=== PATIENT | female | born 1940 | race African-American/Black ===

== ENCOUNTER 2021-12-12 00:58 | Inpatient (IN) | payer MEDICARE, OTHER ==
[~2021-12-12] VITALS: Ht 160 cm; Wt 65.8 kg
[~2021-12-12 00:58] MED LIST: AZEL23SP BOTHNSTRLS; CHLO25TA2 PO; CHLO25TA27 PO; CHOL200010 PO; CLON0.5T54 PO; ESTR0.9T2 PO; FENO45CA PO; FOLI-43 PO; FURO40TA5 PO; GLIP5TAB12 PO; LEVO25TA7 PO; LEVO50TA8 PO; METF-414 PO; METF-415 PO; PANT20TA17 PO; PROT40 PO; [UNRECOGNIZED DRUG - CODE] IV
[2021-12-12] MEDS ORDERED: SODIUM CHLORIDE 0.9% 1000ML BAG (SEPSIS BOLUS) IV ONE (01:30)
[2021-12-12 01:55] LABS: BASOPHILS % 0.4 % (0.0-2.0); EOSINOPHILS % 0.8 % (0.0-5.0); HEMOGLOBIN. 12.4 g/dL (12.0-16.0); LYMPHOCYTES % 9.3 % (20.0-50.0); MEAN CORPUSCULAR HEMOGLOBIN 29.7 pg (28.0-32.0); MEAN CORPUSCULAR VOLUME 89.1 fL (81.0-99.0); MEAN PLATELET VOLUME 8.4 fl (7.4-10.4); NEUTROPHILS % 86.5 % (40.0-76.0); PLATELET 253 x1000/uL (130-400); RED BLOOD CELL COUNT 4.16 mill/uL (4.2-5.4); RED CELL DISTRIBUTION WIDTH 13.3 % (11.6-14.6)
[2021-12-12 02:32] LABS: CHLORIDE 108 mEq/L (98-107)
[2021-12-12 02:56] LABS: CLARITY URINE CLOUDY (CLEAR); COLOR URINE DARK YELLOW (YELLOW); KETONES URINE TRACE (NEGATIVE); LEUKOCYTE ESTERASE URINE 2+ (NEGATIVE); NITRITE URINE NEGATIVE (NEGATIVE); OCCULT BLOOD URINE NEGATIVE (NEGATIVE); PROTEIN URINE 2+ (NEGATIVE); SPECIFIC GRAVITY URINE 1.015 (1.005-1.030)
[2021-12-12] MEDS ORDERED: MAGNESIUM/ALUMINUM HYDROXIDE/SIMETHICONE 30ML UDC PO PRN (07:45)
[2021-12-12] MEDS ORDERED: ONDANSETRON HCL 4MG/2ML INJ IV PRN (07:45)
[2021-12-12] MEDS ORDERED: DEXTROSE 50% WATER 50ML SYRINGE IV PRN (07:45)
[2021-12-12] MEDS ORDERED: ACETAMINOPHEN 325MG TABLET PO PRN (07:45)
[2021-12-12] MEDS ORDERED: GUAIFENESIN 200MG/10ML SUGAR FREE UDC PO PRN (07:45)
[2021-12-12] MEDS ORDERED: NITROGLYCERIN 0.4MG TABLET SL SL PRN (07:45)
[2021-12-12] MEDS ORDERED: IPRATROPIUM/ALBUTEROL 0.5-3(2.5)MG/3ML NEB NEB PRN (07:45)
[2021-12-12] MEDS ORDERED: ZOLPIDEM TARTRATE 5MG TABLET PO PRN (07:45)
[2021-12-12] MEDS ORDERED: DOCUSATE SODIUM 100MG CAPSULE PO PRN (07:45)
[2021-12-12] MEDS ORDERED: KETOROLAC 15MG/ML VIAL IV PRN (07:45)
[2021-12-12] MEDS ORDERED: PIPERACILLIN/TAZ 3.375G PREMIX 50 ML IV NR (08:00)
[2021-12-12 08:57] LABS: FOLIC ACID (FOLATE) SERUM >20 ng/mL ng/mL (>5.38)
[2021-12-12] MEDS: FAMOTIDINE 20MG TABLET PO SCH (09:00)
[2021-12-12 09:09] LABS: VITAMIN B12 SERUM 557 pg/mL (211-911)
[2021-12-12] MEDS: BLOOD SUGAR DIAGNOSTIC STRIP TEST SCH ×4 (11:38→21:26)
[2021-12-12] MEDS: ENOXAPARIN 30MG/0.3ML SYR SUBCUT SCH (11:45)
[2021-12-12] MEDS: INSULIN LISPRO 100 UNITS/ML SUBCUT SCH ×4 (11:46→21:00)
[2021-12-12] MEDS ORDERED: HALOPERIDOL LACTATE 5MG/ML VIAL IM SCH (14:00)
[2021-12-12] MEDS ORDERED: SODIUM CHLORIDE 0.9% 1,000 ML IV ONE (15:15)
[2021-12-12] MEDS: PIPERACILLIN/TAZOBACTAM 3.375 G in DEXTROSE 5% WATER 50 ML IV SCH (21:55)
[2021-12-12] MEDS: CLONIDINE 0.1MG TABLET PO PRN (21:59)
[2021-12-12 22:51] VITALS: BP 159/58
[2021-12-12] MEDS ORDERED: IMMU20VI IJ (23:56)
[2021-12-12] MEDS ORDERED: ASPI-1497 MT (23:56)
[2021-12-12] MEDS ORDERED: BENA40TA9 MT (23:56)
[2021-12-12] MEDS ORDERED: CRES10 MT (23:56)
[2021-12-12] MEDS ORDERED: CARV25TA47 MT (23:56)
[2021-12-12] MEDS ORDERED: RANO500T3 MT (23:56)
[2021-12-12] MEDS ORDERED: METH1TAB2 MT (23:56)
[2021-12-13 04:00] VITALS: BP 126/58
[2021-12-13] MEDS: LEVOTHYROXINE SODIUM 75MCG TABLET PO SCH (06:36)
[2021-12-13] MEDS: BLOOD SUGAR DIAGNOSTIC STRIP TEST SCH ×4 (06:40→21:59)
[2021-12-13] MEDS: INSULIN LISPRO 100 UNITS/ML SUBCUT SCH ×4 (06:57→21:59)
[2021-12-13 07:11] LABS: HEMATOCRIT. 32.5 % (36.0-48.0); HEMOGLOBIN. 10.8 g/dL (12.0-16.0); MEAN CORPUSCULAR HEMOGLOBIN 29.1 pg (28.0-32.0); MEAN CORPUSCULAR VOLUME 87.4 fL (81.0-99.0); MEAN PLATELET VOLUME 9.2 fl (7.4-10.4); PLATELET 183 x1000/uL (130-400); RED BLOOD CELL COUNT 3.71 mill/uL (4.2-5.4); RED CELL DISTRIBUTION WIDTH 13.3 % (11.6-14.6)
[2021-12-13 07:26] LABS: CHLORIDE 114 mEq/L (98-107)
[2021-12-13 07:32] LABS: PHOSPHORUS 2.5 mg/dL (2.5-4.9)
[2021-12-13 08:00] VITALS: BP 128/48
[2021-12-13] MEDS: ENOXAPARIN 30MG/0.3ML SYR SUBCUT SCH (09:26)
[2021-12-13] MEDS: FAMOTIDINE 20MG TABLET PO SCH (09:26)
[2021-12-13 10:51] LABS: PLATELET ESTIMATE NORMAL
[2021-12-13 10:58] LABS: *AMPHETAMINES SCREEN URINE NEGATIVE (NEGATIVE); *BARBITURATES SCREEN URINE NEGATIVE (NEGATIVE); *BENZODIAZEPINES SCREEN URINE NEGATIVE (NEGATIVE)
[2021-12-13 10:59] LABS: *COCAINE SCREEN URINE NEGATIVE (NEGATIVE); CANNABINOID URINE SCREEN NEGATIVE (NEGATIVE); METHADONE URINE SCREEN NEGATIVE (NEGATIVE); OPIATES URINE SCREEN NEGATIVE (NEGATIVE); PHENCYCLIDINE URINE SCREEN NEGATIVE (NEGATIVE)
[2021-12-13 12:00] VITALS: BP 112/45
[2021-12-13] MEDS: PIPERACILLIN/TAZOBACTAM 3.375 G in DEXTROSE 5% WATER 50 ML IV SCH ×2 (12:39→21:59)
[2021-12-13] MEDS: SODIUM CHLORIDE 0.9% 1,000 ML IV SCH (12:40)
[2021-12-13 16:00] VITALS: BP 126/52
[2021-12-13] MEDS: ACETAMINOPHEN 325MG TABLET PO PRN (16:58)
[2021-12-13 20:00] VITALS: BP 108/35
[2021-12-13] MEDS: CARVEDILOL 6.25 MG TABLET PO SCH (21:59)
[2021-12-14] VITALS: BP 119/34
[2021-12-14] MEDS: SODIUM CHLORIDE 0.9% 1,000 ML IV SCH ×2 (00:39→13:07)
[2021-12-14 04:00] VITALS: BP 157/61
[2021-12-14] MEDS: INSULIN LISPRO 100 UNITS/ML SUBCUT SCH ×4 (06:24→21:00)
[2021-12-14] MEDS: BLOOD SUGAR DIAGNOSTIC STRIP TEST SCH ×4 (06:24→21:08)
[2021-12-14] MEDS: LEVOTHYROXINE SODIUM 75MCG TABLET PO SCH (06:25)
[2021-12-14 08:00] VITALS: BP 161/55
[2021-12-14] MEDS: CARVEDILOL 6.25 MG TABLET PO SCH ×2 (11:09→21:08)
[2021-12-14] MEDS: FAMOTIDINE 20MG TABLET PO SCH (11:09)
[2021-12-14] MEDS: ENOXAPARIN 30MG/0.3ML SYR SUBCUT SCH (11:09)
[2021-12-14] MEDS: PIPERACILLIN/TAZOBACTAM 3.375 G in DEXTROSE 5% WATER 50 ML IV SCH ×2 (11:10→21:08)
[2021-12-14 12:00] VITALS: BP 155/60
[2021-12-14 16:00] VITALS: BP 152/64
[2021-12-14] MEDS ORDERED: MOXI3DRO12 LEFTEYE (19:06)
[2021-12-14] MEDS ORDERED: [UNRECOGNIZED DRUG - OTHER] (19:06)
[2021-12-14 20:00] VITALS: BP 173/64
[2021-12-15] VITALS: BP 145/51
[2021-12-15 04:00] VITALS: BP 152/53
[2021-12-15] MEDS: SODIUM CHLORIDE 0.9% 1,000 ML IV SCH ×2 (05:01→18:06)
[2021-12-15] MEDS: INSULIN LISPRO 100 UNITS/ML SUBCUT SCH ×4 (06:17→20:20)
[2021-12-15] MEDS: LEVOTHYROXINE SODIUM 75MCG TABLET PO SCH (06:17)
[2021-12-15] MEDS: BLOOD SUGAR DIAGNOSTIC STRIP TEST SCH ×4 (06:17→20:20)
[2021-12-15 08:00] VITALS: BP 162/62
[2021-12-15] MEDS: FAMOTIDINE 20MG TABLET PO SCH (11:13)
[2021-12-15] MEDS: CARVEDILOL 6.25 MG TABLET PO SCH ×2 (11:13→20:28)
[2021-12-15] MEDS: PIPERACILLIN/TAZOBACTAM 3.375 G in DEXTROSE 5% WATER 50 ML IV SCH ×2 (11:13→20:20)
[2021-12-15] MEDS: ENOXAPARIN 30MG/0.3ML SYR SUBCUT SCH (11:14)
[2021-12-15 12:00] VITALS: BP 154/60
[2021-12-15 16:00] VITALS: BP 158/65
[2021-12-15] MEDS ORDERED: NON FORMULARY PATIENT HOME MED XX SCH (18:00)
[2021-12-15] MEDS: MOXIFLOXACIN 0.5% LEFTEYE SCH ×2 (18:53→20:57)
[2021-12-15 20:00] VITALS: BP 157/55
[2021-12-16] VITALS: BP 158/63
[2021-12-16] MEDS: MOXIFLOXACIN 0.5% LEFTEYE SCH ×3 (01:01→20:31)
[2021-12-16 04:00] VITALS: BP 101/71
[2021-12-16] MEDS: SODIUM CHLORIDE 0.9% 1,000 ML IV SCH ×2 (05:12→18:30)
[2021-12-16] MEDS: CLONIDINE 0.1MG TABLET PO PRN ×3 (05:14→14:28)
[2021-12-16] MEDS: LEVOTHYROXINE SODIUM 75MCG TABLET PO SCH (06:18)
[2021-12-16] MEDS: BLOOD SUGAR DIAGNOSTIC STRIP TEST SCH ×3 (06:21→21:00)
[2021-12-16] MEDS: INSULIN LISPRO 100 UNITS/ML SUBCUT SCH ×3 (06:21→22:34)
[2021-12-16] MEDS: ACETAMINOPHEN 325MG TABLET PO PRN (06:27)
[2021-12-16] MEDS ORDERED: METHYLPREDNISOLONE SOD SUCC 125 MG/2 ML VIAL IV NR (09:00)
[2021-12-16 09:10] VITALS: BP 165/62
[2021-12-16] MEDS: FAMOTIDINE 20MG TABLET PO SCH (09:49)
[2021-12-16] MEDS: CARVEDILOL 6.25 MG TABLET PO SCH ×2 (09:49→20:33)
[2021-12-16] MEDS: ENOXAPARIN 30MG/0.3ML SYR SUBCUT SCH (09:50)
[2021-12-16] MEDS: PIPERACILLIN/TAZOBACTAM 3.375 G in DEXTROSE 5% WATER 50 ML IV SCH ×2 (09:51→20:33)
[2021-12-16] MEDS: PREDNISOLONE ACETATE 1% OPHTH DROPS 5ML LEFTEYE SCH (09:51)
[2021-12-16 14:25] VITALS: BP 165/70
[2021-12-16 20:00] VITALS: BP 165/67
[2021-12-17] VITALS: BP 156/79
[2021-12-17] MEDS: MOXIFLOXACIN 0.5% LEFTEYE SCH ×3 (01:33→10:29)
[2021-12-17 04:00] VITALS: BP 177/58
[2021-12-17] MEDS: LEVOTHYROXINE SODIUM 75MCG TABLET PO SCH (06:37)
[2021-12-17] MEDS: SODIUM CHLORIDE 0.9% 1,000 ML IV SCH (06:38)
[2021-12-17] MEDS: CLONIDINE 0.1MG TABLET PO PRN (06:38)
[2021-12-17] MEDS: BLOOD SUGAR DIAGNOSTIC STRIP TEST SCH (06:39)
[2021-12-17] MEDS: INSULIN LISPRO 100 UNITS/ML SUBCUT SCH (06:39)
[2021-12-17] MEDS ORDERED: INSULIN LISPRO 100 UNITS/ML SUBCUT SCH (07:40)
[2021-12-17 08:00] VITALS: BP 148/62
[2021-12-17] MEDS: FAMOTIDINE 20MG TABLET PO SCH (08:49)
[2021-12-17] MEDS: CARVEDILOL 6.25 MG TABLET PO SCH (08:50)
[2021-12-17] MEDS: PREDNISOLONE ACETATE 1% OPHTH DROPS 5ML LEFTEYE SCH (08:50)
[2021-12-17] MEDS: ENOXAPARIN 30MG/0.3ML SYR SUBCUT SCH (08:51)
[2021-12-17 10:09] VITALS: BP 148/62
== END 2021-12-17 11:10 | disposition home or self-care (01) | DRG 871 ==
LOC: ER 00:58 → 8WST 04:18 → SUPCPDRO 07:06 → ENRESERV 20:57
PROVIDERS: ADMIT Internal Medicine; ATTEND Internal Medicine
DX: A41.9 Sepsis, unspecified organism (principal); G92.8 Other toxic encephalopathy; N17.0 Acute kidney failure with tubular necrosis; N39.0 Urinary tract infection, site not specified; E44.1 Mild protein-calorie malnutrition; E87.1 Hypo-osmolality and hyponatremia; E03.9 Hypothyroidism, unspecified; E11.9 Type 2 diabetes mellitus without complications; B96.20 Unspecified Escherichia coli [E. coli] as the cause of diseases classified elsewhere; I10 Essential (primary) hypertension; I25.10 Atherosclerotic heart disease of native coronary artery without angina pectoris; N13.9 Obstructive and reflux uropathy, unspecified; K52.9 Noninfective gastroenteritis and colitis, unspecified; Z96.642 Presence of left artificial hip joint; Z79.4 Long term (current) use of insulin; Z88.8 Allergy status to other drugs, medicaments and biological substances; Z79.84 Long term (current) use of oral hypoglycemic drugs; Z79.899 Other long term (current) drug therapy; Z68.25 Body mass index [BMI] 25.0-25.9, adult
CPT/HCPCS: 36415; 71045; 74176; 80053; 80061; 80305; 81003; 82607; 82746; 82962; 83036; 83540; 83550; 83605; 83735; 84100; 84145; 84443; 84484; 85025; 87015; 87045; 87077; 87186; 87427; 87493; 89055; 93005; 93970; 97110; 97162; 97166; 97530; 99291; J1630; J1650; J1815; J2543; J2930; J7030; J7060

== ENCOUNTER 2025-08-27 12:20 | Inpatient (IN) | payer OTHER, MEDICARE ==
[~2025-08-27] VITALS: Ht 160 cm; Wt 65.8 kg
[~2025-08-27 12:20] MED LIST changes: +ASPI-1497 MT; +BENA40TA91 MT; +CARV12.545 PO; +CEFI400C4 PO; -CHLO25TA2 PO; -CHLO25TA27 PO; -CHOL200010 PO; -CLON0.5T54 PO; +CRES10 MT; +DONE5TAB33 PO; -ESTR0.9T2 PO; -FENO45CA PO; -FURO40TA5 PO; -GLIP5TAB12 PO; +IMMU20VI IJ; -LEVO25TA7 PO; -METF-414 PO; -METF-415 PO; +METH1TAB69 PO; +NIFE-33 PO; -PANT20TA17 PO; +PANT40TA51 PO; -PROT40 PO; +RANO500T3 MT; +ROSU10CA; +TRAM50TA3 PO; -[UNRECOGNIZED DRUG - CODE] IV
[2025-08-27 12:22] VITALS: O2SAT 100
[2025-08-27] MEDS ORDERED: ASPIRIN 81MG TABLET PO ONE (13:00)
[2025-08-27 13:18] LABS: BASOPHILS % 0.7 % (0.0-2.0); EOSINOPHILS % 2.0 % (0.0-5.0); HEMATOCRIT. 34.6 % (36.0-48.0); HEMOGLOBIN. 11.2 g/dL (12.0-16.0); LYMPHOCYTES % 15.5 % (20.0-50.0); MEAN PLATELET VOLUME 8.6 fl (7.4-10.4); MONOCYTES % 6.2 % (2.0-8.0); NEUTROPHILS % 75.6 % (40.0-76.0); PLATELET 275 x1000/uL (130-400); RED BLOOD CELL COUNT 4.12 mill/uL (4.2-5.4); RED CELL DISTRIBUTION WIDTH 15.1 % (11.6-14.6)
[2025-08-27] MEDS: CEFTRIAXONE 1GM/50ML 50 ML IV ONE (13:28)
[2025-08-27] MEDS: SODIUM CHLORIDE 0.9% (SEPSIS BOLUS) IV ONE (13:28)
[2025-08-27 13:31] LABS: INR 1.0
[2025-08-27 13:44] LABS: TROPONIN I HIGH SENSITIVITY 9 ng/L (3.0-34); UREA NITROGEN BLOOD 32 mg/dL (9-23)
[2025-08-27 13:45] LABS: PROTEIN TOTAL 7.9 g/dL (6.0-8.3)
[2025-08-27 13:46] LABS: ASPARTATE AMINOTRANSFERASE 18 IU/L (<34)
[2025-08-27 13:47] LABS: BILIRUBIN DIRECT 0.1 mg/dL (<=3.0); BILIRUBIN TOTAL 0.4 mg/dL (0.1-1.0)
[2025-08-27 13:49] LABS: CREATININE 2.1 mg/dL (0.6-1.0)
[2025-08-27 14:30] LABS: CLARITY URINE CLEAR (CLEAR); COLOR URINE YELLOW (YELLOW); GLUCOSE URINE NEGATIVE (NEGATIVE); KETONES URINE NEGATIVE (NEGATIVE); LEUKOCYTE ESTERASE URINE 1+ (NEGATIVE); NITRITE URINE NEGATIVE (NEGATIVE); OCCULT BLOOD URINE TRACE (NEGATIVE); PH URINE 6.5 (4.5-8.0); PROTEIN URINE 1+ (NEGATIVE); SPECIFIC GRAVITY URINE 1.011 (1.005-1.030); UROBILINOGEN URINE 0.2 E.U./dL (0.2-1.0)
[2025-08-27 14:42] LABS: RBC URINE 0-2 /hpf (0-2); SQUAMOUS EPITHELIAL CELL URINE 1+ /lpf (RARE/1+)
[2025-08-27 14:43] LABS: BACTERIA URINE 1+; YEAST URINE NONE SEEN
[2025-08-27] MEDS: AZITHROMYCIN 500MG/250ML 250 ML IV ONE (15:27)
[2025-08-27] MEDS: FUROSEMIDE 40MG/4ML VIAL IVP ONE (16:24)
[2025-08-27] MEDS ORDERED: DEXTROSE 50% WATER 50ML SYRINGE IV PRN (16:30)
[2025-08-27] MEDS ORDERED: SODIUM CHLORIDE 0.45% 1,000 ML IV SCH (16:30)
[2025-08-27] MEDS ORDERED: ONDANSETRON HCL 4MG/2ML INJ IV PRN (16:30)
[2025-08-27] MEDS ORDERED: MAGNESIUM/ALUMINUM HYDROXIDE/SIMETHICONE 30ML UDC PO PRN (16:30)
[2025-08-27] MEDS ORDERED: IPRATROPIUM/ALBUTEROL 0.5-3(2.5)MG/3ML NEB HHN PRN (16:30)
[2025-08-27] MEDS: BLOOD SUGAR DIAGNOSTIC STRIP TEST SCH (17:00)
[2025-08-27] MEDS ORDERED: DONE23TA14 MT (17:32)
[2025-08-27 17:40] VITALS: BP 181/67; PULSE 76; RESP 22; TEMP 36.3068
[2025-08-27] MEDS: ENOXAPARIN 30MG/0.3ML SYR SUBCUT SCH (18:07)
[2025-08-27] MEDS: INSULIN LISPRO 100 UNITS/ML SUBCUT SCH (18:20)
[2025-08-27] MEDS: SODIUM CHLORIDE 0.45% 500 ML IV ONE (18:23)
[2025-08-27 20:00] VITALS: BP 164/65; PULSE 69; RESP 19; TEMP 36.7
[2025-08-27] MEDS: PANTOPRAZOLE 40MG DR TABLET PO SCH (20:19)
[2025-08-27] MEDS: ATORVASTATIN CALCIUM 10MG TABLET PO SCH (20:19)
[2025-08-27] MEDS: FUROSEMIDE 40MG/4ML VIAL IV SCH (20:19)
[2025-08-27] MEDS: CARVEDILOL 12.5MG TABLET PO SCH (20:20)
[2025-08-27] MEDS ORDERED: CHOL200010 PO (21:52)
[2025-08-28] VITALS: BP 131/46; PULSE 65; RESP 17; TEMP 36.8; O2SAT 100
[2025-08-28 00:46] LABS: TROPONIN I HIGH SENSITIVITY 13 ng/L (3.0-34)
[2025-08-28 00:49] LABS: FOLIC ACID (FOLATE) SERUM > 20.00 ng/mL (>5.38)
[2025-08-28 00:50] LABS: VITAMIN B12 SERUM 274 pg/mL (211-911)
[2025-08-28 04:00] VITALS: BP 169/67; PULSE 72; RESP 23; TEMP 36.7; O2SAT 100
[2025-08-28] MEDS: CLONIDINE 0.1MG TABLET PO PRN (04:15)
[2025-08-28] MEDS: TRAMADOL 50MG TABLET PO PRN (05:44)
[2025-08-28] MEDS: LEVOTHYROXINE SODIUM 25MCG TABLET PO SCH (06:23)
[2025-08-28 06:50] LABS: PROTEIN TOTAL 7.6 g/dL (6.0-8.3)
[2025-08-28 06:51] LABS: ASPARTATE AMINOTRANSFERASE 17 IU/L (<34); BILIRUBIN DIRECT 0.2 mg/dL (<=3.0); BILIRUBIN TOTAL 0.4 mg/dL (0.1-1.0)
[2025-08-28 06:52] LABS: CREATININE 1.9 mg/dL (0.6-1.0); TRIGLYCERIDE 92.0 mg/dL (0-150); UREA NITROGEN BLOOD 29.0 mg/dL (9-23)
[2025-08-28 06:53] LABS: LDL CHOLESTEROL 46.0 mg/dL (5-100); TROPONIN I HIGH SENSITIVITY 11 ng/L (3.0-34)
[2025-08-28 06:54] LABS: T4 FREE 1.69 ng/dL (0.89-1.76)
[2025-08-28 07:24] LABS: BASOPHILS % 0.8 % (0.0-2.0); EOSINOPHILS % 2.8 % (0.0-5.0); HEMATOCRIT. 34.0 % (36.0-48.0); HEMOGLOBIN. 10.5 g/dL (12.0-16.0); LYMPHOCYTES % 19.5 % (20.0-50.0); MEAN PLATELET VOLUME 9.3 fl (7.4-10.4); MONOCYTES % 8.3 % (2.0-8.0); NEUTROPHILS % 68.6 % (40.0-76.0); PLATELET 259 x1000/uL (130-400); RED BLOOD CELL COUNT 3.99 mill/uL (4.2-5.4); RED CELL DISTRIBUTION WIDTH 15.2 % (11.6-14.6)
[2025-08-28 08:00] VITALS: BP 119/45; PULSE 55; RESP 55; TEMP 36.7; O2SAT 100
[2025-08-28] MEDS ORDERED: FUROSEMIDE 40MG/4ML VIAL IV SCH (09:00)
[2025-08-28 09:49] LABS: BG BASE EXCESS -4.2 mmol/L (-2.0-3.0); BG CARBOXYHEMOGLOBIN 1.1 % (0.5-1.5); BG DEOXYHEMOGLOBIN 2.7 % (0.0-5.0); BG FLOW(L/min) 4.00 L/min; BG FRACTION INSPIRED OXYGEN 36; BG HCO3 ACT 21.7 mmol/L (21.0-28.0); BG METHEMOGLOBIN 0.3 % (0.5-1.5); BG OXYGEN SATURATION 97.3 % (94.0-98.0); BG OXYHEMOGLOBIN 95.9 % (94.0-98.0); BG PCO2 42.7 mmHg (32.0-45.0); BG PH 7.323 (7.350-7.450); BG PO2 96.2 mmHg (83.0-108.0); BG SAMPLE SITE LEFT RADIAL; BG TOTAL HEMOGLOBIN 9.7 g/dL (12.0-16.0); BG VENT MODE NASAL CANNULA
[2025-08-28] MEDS: ASPIRIN 81MG EC TABLET PO SCH (09:52)
[2025-08-28] MEDS: DONEPEZIL HCL 5MG TABLET PO SCH (09:52)
[2025-08-28] MEDS: NIFEDIPINE XL 30MG TAB PO SCH (09:56)
[2025-08-28 12:00] VITALS: BP 96/34; PULSE 56; RESP 56; TEMP 36.6; O2SAT 100
[2025-08-28] MEDS: IOHEXOL-350 100 ML BOTTLE ONE (15:22)
[2025-08-28 16:00] VITALS: BP 133/42; PULSE 67; RESP 21; TEMP 36.8; O2SAT 97
[2025-08-28 20:00] VITALS: BP 122/46; PULSE 63; RESP 19; TEMP 36.9; O2SAT 97
[2025-08-29] VITALS: BP 128/45; PULSE 64; RESP 14; TEMP 36.7; O2SAT 94
[2025-08-29 04:00] VITALS: BP 127/61; PULSE 57; RESP 13; TEMP 36.4; O2SAT 94
[2025-08-29 08:00] VITALS: BP 126/52; PULSE 55; RESP 12; TEMP 36.6; O2SAT 97
[2025-08-29] MEDS: FUROSEMIDE 40MG/4ML VIAL IV SCH (10:11)
[2025-08-29 10:22] LABS: BASOPHILS % 0.9 % (0.0-2.0); EOSINOPHILS % 3.7 % (0.0-5.0); HEMATOCRIT. 29.3 % (36.0-48.0); HEMOGLOBIN. 9.2 g/dL (12.0-16.0); LYMPHOCYTES % 34.1 % (20.0-50.0); MEAN PLATELET VOLUME 8.9 fl (7.4-10.4); MONOCYTES % 11.3 % (2.0-8.0); NEUTROPHILS % 50.0 % (40.0-76.0); PLATELET 231 x1000/uL (130-400); RED BLOOD CELL COUNT 3.49 mill/uL (4.2-5.4); RED CELL DISTRIBUTION WIDTH 15.2 % (11.6-14.6)
[2025-08-29 10:29] LABS: CREATININE 2.2 mg/dL (0.6-1.0)
[2025-08-29 10:30] LABS: UREA NITROGEN BLOOD 37.0 mg/dL (9-23)
[2025-08-29 12:00] VITALS: BP 136/54; PULSE 59; RESP 14; TEMP 36.8; O2SAT 95
[2025-08-29 14:36] VITALS: BP 136/54; PULSE 59; RESP 16; TEMP 98.2
[2025-08-30] MEDS ORDERED: FAMOTIDINE 20MG TABLET PO SCH (09:00)
== END 2025-08-29 15:56 | disposition home or self-care (01) | DRG 291 ==
LOC: ER 12:20 → 3WST 15:33 → EDBEDREQ 15:36 → EDBEDREQTM 15:36
PROVIDERS: ADMIT Internal Medicine; ATTEND Internal Medicine
DX: I13.0 Hypertensive heart and chronic kidney disease with heart failure and stage 1 through stage 4 chronic kidney disease, or unspecified chronic kidney disease (principal); J96.01 Acute respiratory failure with hypoxia; N17.9 Acute kidney failure, unspecified; E11.22 Type 2 diabetes mellitus with diabetic chronic kidney disease; D64.9 Anemia, unspecified; E03.9 Hypothyroidism, unspecified; N39.0 Urinary tract infection, site not specified; I50.9 Heart failure, unspecified; N18.32 Chronic kidney disease, stage 3b; F03.90 Unspecified dementia, unspecified severity, without behavioral disturbance, psychotic disturbance, mood disturbance, and anxiety; K80.20 Calculus of gallbladder without cholecystitis without obstruction; G89.4 Chronic pain syndrome; E78.00 Pure hypercholesterolemia, unspecified; I25.10 Atherosclerotic heart disease of native coronary artery without angina pectoris; Z96.642 Presence of left artificial hip joint; Z83.3 Family history of diabetes mellitus; Z79.84 Long term (current) use of oral hypoglycemic drugs
CPT/HCPCS: 36415; 36600; 71045; 71275; 80048; 80061; 80076; 81003; 82040; 82375; 82550; 82607; 82728; 82746; 82805; 82962; 83036; 83540; 83550; 83605; 83880; 84439; 84443; 84484; 85025; 85379; 86850; 86900; 93005; 93306; 97166; 99285; J0456; J0696; J1650; J1815; J1938; J7030; Q9967